=== PATIENT | male | born 1970 | race Caucasian/White ===

== ENCOUNTER → 2020-01-25 | Outpatient (CLI) | payer BC | LOC: ZCOL.LAB 13:10 | DX: Z01.89 Encounter for other specified special examinations (principal) ==

== ENCOUNTER → 2020-01-25 | Outpatient (CLI) | payer BC | LOC: ZCOL.LAB 14:34 | DX: Z20.828 Contact with and (suspected) exposure to other viral communicable diseases (principal) ==

== ENCOUNTER → 2020-09-06 | Outpatient (CLI) | payer OTHER | LOC: MHCPAIN 12:21 | DX: M47.817 Spondylosis without myelopathy or radiculopathy, lumbosacral region (principal); M96.1 Postlaminectomy syndrome, not elsewhere classified; M54.5 Low back pain; M53.3 Sacrococcygeal disorders, not elsewhere classified; G89.29 Other chronic pain | CPT/HCPCS: G0463 ==

== ENCOUNTER → 2020-09-11 | Outpatient (CLI) | payer OTHER | LOC: MHCPAIN 13:55 | DX: M47.817 Spondylosis without myelopathy or radiculopathy, lumbosacral region (principal); M54.5 Low back pain ==

== ENCOUNTER → 2020-09-19 | Outpatient (CLI) | payer OTHER ==
[~2020-09-19] MED LIST: BENTYL 20MG20 MG/TAB PO; EFFEXOR 75M75 MG/TAB PO; FLEXERIL 1010 MG/TAB PO; IMODIUM A-D2 MG PO; LIPITOR 80MG80 MG PO; LYRICA 75MG CAP75 MG PO; MINIPRESS 5M5 MG/CAP PO; MOTRIN 600600 MG/TAB PO; ONE-A-DAY ESSE1 EACH PO; PERCOCET 325 MG1 TA2 PO; ROXICODONE 55 MG/TAB PO
== END ==
LOC: MHCPAIN 13:37
DX: M47.817 Spondylosis without myelopathy or radiculopathy, lumbosacral region (principal); M54.16 Radiculopathy, lumbar region; M96.1 Postlaminectomy syndrome, not elsewhere classified; M53.3 Sacrococcygeal disorders, not elsewhere classified; G89.29 Other chronic pain
CPT/HCPCS: G0463

== ENCOUNTER 2020-11-28 05:35 | Day surgery (SDC) | payer OTHER ==
[2020-11-28] VITALS (7 sets, daily range): BP systolic 101–124; BP diastolic 47–71; PULSE 80–87; TEMP 97.4–97.6
[~2020-11-28] VITALS: Ht 198.1 cm; Wt 151.0 kg
[2020-11-28] MEDS ORDERED: BENTYL 20MG20 MG/TAB PO (06:18)
[2020-11-28] MEDS ORDERED: LYRICA 75MG CAP75 MG PO ×2 (06:18→06:19)
[2020-11-28] MEDS ORDERED: ONE-A-DAY ESSE1 EACH PO (06:19)
[2020-11-28] MEDS ORDERED: LIPITOR 80MG80 MG PO (06:20)
[2020-11-28] MEDS ORDERED: FLEXERIL 1010 MG/TAB PO ×2 (06:20→06:21)
[2020-11-28] MEDS ORDERED: ROXICODONE 55 MG/TAB PO (06:20)
[2020-11-28] MEDS ORDERED: IMODIUM A-D2 MG PO (06:22)
[2020-11-28] MEDS ORDERED: MINIPRESS 5M5 MG/CAP PO (06:22)
[2020-11-28] MEDS ORDERED: EFFEXOR 75M75 MG/TAB PO (06:23)
--- NOTE | 2020-11-28 06:24 | NUR ---
TO RM 8 AT 0543- CALL LIGHT IN REACH AT BEDSIDE
[2020-11-28] MEDS ORDERED: MOTRIN 600600 MG/TAB PO (10:16)
[2020-11-28] MEDS ORDERED: PERCOCET 325 MG1 TA2 PO (10:17)
--- NOTE | 2020-11-28 10:35 | NUR ---
TO RM 8 PER CART FROM PACU. ALERT ORIENTED X3, TALKING TO STAFF. 02 SAT 94% ON 2L. RESPIRATIONS EVEN AND NONLABORED. CLEAR ADHESIVE DRESSING CLEAN DRY INTACT.
--- NOTE | 2020-11-28 10:50 | NUR ---
RECEIVED MUDREWIN AND SPRITE.
--- NOTE | 2020-11-28 11:05 | NUR ---
ATE 100% AND TOLERATED WELL. RECIVED CUP OF WATER.
--- NOTE | 2020-11-28 11:35 | NUR ---
C/O INCREASED PAIN AND RECEIVED PERCOCET 1 TAB PER ORDER.
--- NOTE | 2020-11-28 12:05 | NUR ---
RECEIVED 2ND SPRITE.
--- NOTE | 2020-11-28 12:50 | NUR ---
AMBULATED TO BATHROOM WITH ASSIST AND TOLERATED WELL.
--- NOTE | 2020-11-28 13:00 | NUR ---
RECEIVED DISCHARGE INSTRUCTIONS AND VERBALIZED UNDERSTANDING DISCONTINUED IV AND INT- CATHETER INTACT
--- NOTE | 2020-11-28 13:20 | NUR ---
DISCHARGED PER WC BY NURSING STAFF TO PRIVATE CAR IN CARE OF .
== END 2020-11-28 13:48 | disposition home or self-care (01) ==
LOC: SDCO 05:35
DX: K42.9 Umbilical hernia without obstruction or gangrene (principal); K43.9 Ventral hernia without obstruction or gangrene; G47.33 Obstructive sleep apnea (adult) (pediatric); G89.29 Other chronic pain; M54.9 Dorsalgia, unspecified; E78.00 Pure hypercholesterolemia, unspecified; G58.9 Mononeuropathy, unspecified; F43.10 Post-traumatic stress disorder, unspecified; Z20.822 Contact with and (suspected) exposure to COVID-19; Z79.891 Long term (current) use of opiate analgesic; Z99.89 Dependence on other enabling machines and devices; Z79.899 Other long term (current) drug therapy; Z80.3 Family history of malignant neoplasm of breast
CPT/HCPCS: C1781; J0330; J0690; J1885; J2250; J2704; J3010; J7120

== ENCOUNTER → 2020-12-18 | Outpatient (CLI) | payer OTHER | LOC: MHCPAIN 09:39 | DX: M47.817 Spondylosis without myelopathy or radiculopathy, lumbosacral region (principal); M54.16 Radiculopathy, lumbar region; M96.1 Postlaminectomy syndrome, not elsewhere classified; M53.3 Sacrococcygeal disorders, not elsewhere classified | CPT/HCPCS: G0463 ==

== ENCOUNTER → 2021-01-15 | Outpatient (CLI) | payer OTHER | LOC: MHCPAIN 01-08 11:45 | DX: M54.16 Radiculopathy, lumbar region (principal); M96.1 Postlaminectomy syndrome, not elsewhere classified | CPT/HCPCS: C1883 ==

== ENCOUNTER → 2023-05-06 | Outpatient (CLI) | payer OTHER | LOC: MHCPAIN 07:53 | DX: M47.816 Spondylosis without myelopathy or radiculopathy, lumbar region (principal); M96.1 Postlaminectomy syndrome, not elsewhere classified; M54.50 Low back pain, unspecified | CPT/HCPCS: G0463 ==

== ENCOUNTER → 2023-05-28 | Outpatient (CLI) | payer OTHER | LOC: MHCPAIN 12:26 | DX: M47.896 Other spondylosis, lumbar region (principal); M54.16 Radiculopathy, lumbar region; M96.1 Postlaminectomy syndrome, not elsewhere classified | CPT/HCPCS: G0463 ==

== ENCOUNTER → 2023-08-07 | Outpatient (CLI) | payer OTHER | LOC: MHCPAIN 13:20 | DX: M47.817 Spondylosis without myelopathy or radiculopathy, lumbosacral region (principal); M54.50 Low back pain, unspecified | CPT/HCPCS: J0665 ==

== ENCOUNTER → 2023-09-16 | Outpatient (CLI) | payer OTHER | LOC: MHCPAIN 08:03 | DX: M47.896 Other spondylosis, lumbar region (principal); M96.1 Postlaminectomy syndrome, not elsewhere classified; G89.29 Other chronic pain | CPT/HCPCS: G0463 ==